=== PATIENT | male | born 1955 | race Caucasian/White ===

== ENCOUNTER → 2022-05-06 | Outpatient (CLI) | payer MEDICARE ==
[~2022-05-06] MED LIST: AMLODIPINE BESY10 MG PO; AMLODIPINE BESYL5 MG PO; IRBESARTAN150 MG PO; PERCOCET 325 MG1 TA7 PO; TOPROL XL50 M1 PO
== END | disposition home or self-care (01) ==
LOC: RESCLI 02:53
PROVIDERS: ATTEND Internal Medicine
DX: Z72.0 Tobacco use (principal); E78.5 Hyperlipidemia, unspecified; I10 Essential (primary) hypertension; K21.9 Gastro-esophageal reflux disease without esophagitis; M19.90 Unspecified osteoarthritis, unspecified site; R29.90 Unspecified symptoms and signs involving the nervous system; Z98.890 Other specified postprocedural states; Z95.5 Presence of coronary angioplasty implant and graft; Z82.49 Family history of ischemic heart disease and other diseases of the circulatory system; Z72.89 Other problems related to lifestyle; Z79.899 Other long term (current) drug therapy

== ENCOUNTER → 2022-05-22 | Outpatient (CLI) | payer MEDICARE | END | disposition home or self-care (01) | LOC: RESCLI 14:19 | PROVIDERS: ATTEND Student in an Organized Health Care Education/Training Program | DX: Z23 Encounter for immunization (principal); I10 Essential (primary) hypertension; K21.9 Gastro-esophageal reflux disease without esophagitis; M19.90 Unspecified osteoarthritis, unspecified site; E78.5 Hyperlipidemia, unspecified; R05.3 Chronic cough; N52.9 Male erectile dysfunction, unspecified; I63.9 Cerebral infarction, unspecified; F17.200 Nicotine dependence, unspecified, uncomplicated ==

== ENCOUNTER → 2022-06-19 | Outpatient (CLI) | payer MEDICARE | END | disposition home or self-care (01) | LOC: LAB 13:05 | PROVIDERS: ATTEND Internal Medicine | DX: Z12.5 Encounter for screening for malignant neoplasm of prostate (principal) ==

== ENCOUNTER → 2022-06-23 | Outpatient (CLI) | payer MEDICARE | END | disposition home or self-care (01) | LOC: US 00:26 | PROVIDERS: ATTEND Internal Medicine | DX: K76.0 Fatty (change of) liver, not elsewhere classified (principal); K76.89 Other specified diseases of liver; N28.1 Cyst of kidney, acquired; K21.9 Gastro-esophageal reflux disease without esophagitis ==

== ENCOUNTER → 2022-07-18 | Outpatient (CLI) | payer MEDICARE | END | disposition home or self-care (01) | LOC: RESCLI 13:14 | PROVIDERS: ATTEND Family Medicine | DX: M75.00 Adhesive capsulitis of unspecified shoulder (principal); I10 Essential (primary) hypertension; K21.9 Gastro-esophageal reflux disease without esophagitis; I63.9 Cerebral infarction, unspecified; N52.9 Male erectile dysfunction, unspecified; F17.210 Nicotine dependence, cigarettes, uncomplicated; F10.90 Alcohol use, unspecified, uncomplicated; Z82.49 Family history of ischemic heart disease and other diseases of the circulatory system; Z98.890 Other specified postprocedural states; Z79.82 Long term (current) use of aspirin; Z79.899 Other long term (current) drug therapy ==

== ENCOUNTER → 2022-07-21 | Outpatient (CLI) | payer MEDICARE | END | disposition home or self-care (01) | LOC: NM 01:40 | PROVIDERS: ATTEND Internal Medicine | DX: Z13.9 Encounter for screening, unspecified (principal) ==

== ENCOUNTER → 2022-08-04 | Outpatient (CLI) | payer MEDICARE | END | disposition home or self-care (01) | LOC: RAD 00:40 | PROVIDERS: ATTEND Internal Medicine | DX: M19.011 Primary osteoarthritis, right shoulder (principal); M25.711 Osteophyte, right shoulder; M75.91 Shoulder lesion, unspecified, right shoulder; M75.01 Adhesive capsulitis of right shoulder ==

== ENCOUNTER → 2022-09-04 | Outpatient (CLI) | payer MEDICARE ==
[2022-09-04 17:17] LABS: BASO # 0.1 10*3/uL (0.0-0.1); BASO % 0.4 % (0.0-1.0); EOS # 0.3 10*3/uL (0.0-0.4); HEMATOCRIT 50.4 % (42.0-52.0); LYMPH # 3.2 10*3/uL (1.3-4.4); LYMPH % 26.4 % (27.0-41.0); MEAN CELL VOLUME 95.1 fl (80.0-94.0); MEAN CORPUSCULAR HGB 32.1 pg (27.0-31.0); MEAN CORPUSCULAR HGB CONC 33.7 g/dl (33.0-37.0); MEAN PLATELET VOLUME 11.6 fl (9.6-12.3); MONO % 8.3 % (3.0-9.0); NEUT # 7.7 10*3/uL (2.3-7.9); NEUT % 62.3 % (47.0-73.0); PLATELET COUNT AUTOMATED 190 10*3/uL (130-400); RED CELL DISTRI WIDTH 13.6 % (0-14.5); WHITE BLOOD COUNT 12.3 10*3/uL (4.8-10.8)
[2022-09-04 17:34] LABS: ALKALINE PHOSPHATASE 109 U/L (46-116); BUN 14 mg/dl (9-23); CHLORIDE 107 mmol/L (98-107); FREE T4 1.32 ng/dl (0.89-1.76); POTASSIUM 4.1 mmol/L (3.4-5.1); SGPT/ALT 39 U/L (10-49); THYROID STIM HORMONE (HS) 1.168 uIU/ml (0.550-4.780)
== END | disposition home or self-care (01) ==
LOC: RESCLI 14:53
PROVIDERS: Internal Medicine; ATTEND Student in an Organized Health Care Education/Training Program
DX: R53.83 Other fatigue (principal); K63.5 Polyp of colon; K21.9 Gastro-esophageal reflux disease without esophagitis; N52.9 Male erectile dysfunction, unspecified; I63.9 Cerebral infarction, unspecified; I10 Essential (primary) hypertension; Z98.890 Other specified postprocedural states; Z82.3 Family history of stroke; F10.90 Alcohol use, unspecified, uncomplicated; Z79.899 Other long term (current) drug therapy

== ENCOUNTER → 2022-09-29 | Day surgery (SDC) | payer MEDICARE ==
[~2022-09-29] VITALS: Ht 177.8 cm; Wt 83.9 kg
[~2022-09-29] MED LIST changes: +NEXIUM20 M1 PO
[2022-09-29 07:25] VITALS: BP 126/83
[2022-09-29 08:21] VITALS: BP 113/69
[2022-09-29 08:36] VITALS: BP 122/61
[2022-09-29 08:51] VITALS: BP 112/67
== END | disposition home or self-care (01) ==
LOC: SDC 09-25 13:15
PROVIDERS: ATTEND Surgery
DX: Z12.11 Encounter for screening for malignant neoplasm of colon (principal); K63.5 Polyp of colon; K62.1 Rectal polyp; K57.30 Diverticulosis of large intestine without perforation or abscess without bleeding; Z86.010 Personal history of colon polyps; I10 Essential (primary) hypertension; E78.00 Pure hypercholesterolemia, unspecified; M19.90 Unspecified osteoarthritis, unspecified site; K21.9 Gastro-esophageal reflux disease without esophagitis; Z79.899 Other long term (current) drug therapy; Z98.890 Other specified postprocedural states

== ENCOUNTER → 2022-10-02 | Outpatient (CLI) | payer MEDICARE | END | disposition home or self-care (01) | LOC: RESCLI 00:34 | PROVIDERS: ATTEND Internal Medicine | DX: R94.8 Abnormal results of function studies of other organs and systems (principal); R91.8 Other nonspecific abnormal finding of lung field; I63.9 Cerebral infarction, unspecified; K21.9 Gastro-esophageal reflux disease without esophagitis; N52.9 Male erectile dysfunction, unspecified; F10.90 Alcohol use, unspecified, uncomplicated; I10 Essential (primary) hypertension; Z82.49 Family history of ischemic heart disease and other diseases of the circulatory system; Z98.890 Other specified postprocedural states; Z79.82 Long term (current) use of aspirin; Z79.899 Other long term (current) drug therapy ==

== ENCOUNTER → 2023-01-05 | Outpatient (CLI) | payer MEDICARE | END | disposition home or self-care (01) | LOC: CT 12-01 09:00 | PROVIDERS: ATTEND Internal Medicine | DX: I25.10 Atherosclerotic heart disease of native coronary artery without angina pectoris (principal); K76.89 Other specified diseases of liver; R91.8 Other nonspecific abnormal finding of lung field ==

== ENCOUNTER → 2023-04-24 | Outpatient (CLI) | payer MEDICARE | END | disposition home or self-care (01) | LOC: CT 17:00 | PROVIDERS: ATTEND Internal Medicine | DX: J43.9 Emphysema, unspecified (principal); R91.8 Other nonspecific abnormal finding of lung field; Z87.898 Personal history of other specified conditions ==

== ENCOUNTER → 2023-06-03 | Outpatient (CLI) | payer MEDICARE | END | disposition home or self-care (01) | LOC: RESCLI 01:00 | PROVIDERS: ATTEND Family Medicine | DX: I63.9 Cerebral infarction, unspecified (principal); I10 Essential (primary) hypertension; N52.9 Male erectile dysfunction, unspecified; M89.9 Disorder of bone, unspecified; K21.9 Gastro-esophageal reflux disease without esophagitis; F17.200 Nicotine dependence, unspecified, uncomplicated; Z79.899 Other long term (current) drug therapy; Z79.82 Long term (current) use of aspirin ==

== ENCOUNTER → 2023-08-03 | Outpatient (CLI) | payer MEDICARE | LOC: CARD 11:28 | PROVIDERS: ATTEND Internal Medicine | DX: R91.8 Other nonspecific abnormal finding of lung field (principal); I10 Essential (primary) hypertension; Z98.890 Other specified postprocedural states ==